=== PATIENT | female | born 1960 | race Caucasian/White ===

== ENCOUNTER 2016-09-24 07:29 | Emergency (ER) | payer MEDICAID, OTHER ==
[~2016-09-24] VITALS: Ht 154.9 cm; Wt 50.0 kg
[2016-09-24 07:34] VITALS: Ht 154.9 cm; Wt 50.0 kg
[2016-09-24 08:39] LABS: URINE BLOOD (Dip) POC 1+ (NEGATIVE)
--- NOTE | 2016-09-24 09:32 | ERD ---
ER Documentation Chief Complaint Date/Time DATE: 09/24/16 TIME: 09:25 Chief Complaint "lower abdominal hernia pain, but i have uterine cancer 20 years ago" HPI This patient is a 56-year-old female with past medical history of uterine cancer post hysterectomy presenting to the emergency department for pelvic pain with prolapse ongoing for the past 3 months. Additionally the patient reports incontinence and uses approximately 3 pads per day. The patient states she had a normal Pap smear approximately 1 year ago. She taken Tylenol for her pain with mild relief of symptoms. She has history of breast and uterine cancer on the maternal side. She denies fevers, chills, hematuria, or other symptoms at this time. ROS All systems reviewed and are negative except as per history of present illness. Allergies Allergies: Coded Allergies: Penicillins (Unverified Allergy, Unknown, 09/24/16) Uncoded Allergies: pcn (Allergy, Unknown, 09/24/16) PMhx/Soc Hx Alcohol Use: No Hx Substance Use: No Hx Tobacco Use: No FmHx Noncontributory for chief complaint Physical Exam Vitals Vital Signs Date Time Temp Pulse Resp B/P Pulse Ox O2 Delivery O2 Flow Rate FiO2 09/24/16 07:34 97.8 100 18 134/86 100 Physical Exam Const: The patient is resting comfortably in no acute distress. Head: Atraumatic Eyes: Normal Conjunctiva ENT: Normal External Ears, Nose and Mouth. Neck: Full range of motion..~ No meningismus. Resp: Clear to auscultation bilaterally Cardio: Regular rate and rhythm, no murmurs Abd: Soft, non tender, non distended. Normal bowel sounds Skin: No petechiae or rashes Back: No midline or flank tenderness Ext: No cyanosis, or edema Neur: Awake and alert Psych: Normal Mood and Affect Pelvic Exam: Director Of Enterprise Strategy present Abdomen: Nontender External Genitalia: Normal skin, when the patient is standing there is pelvic organ prolapse, most likely cystocele. Speculum: Normal vaginal mucosa, the patient is post hysterectomy without a cervix. There is a pink structure noted in the vaginal vault, most likely the bladder. Bimanual: No adnexal masses or tenderness. Results 24 hrs Laboratory Tests Test 09/24/16 08:41 Bedside Urine pH (LAB) 7.0 Bedside Urine Protein (LAB) Negative Bedside Urine Glucose (UA) Negative Bedside Urine Ketones (LAB) Negative Bedside Urine Blood 1+ Bedside Urine Nitrite (LAB) Negative Bedside Urine Leukocyte Esterase (L Negative Procedures/MDM 56-year-old female presents to the emergency department for pelvic pain and vaginal prolapse. On physical examination the patient's vitals are within normal limits. Pelvic exam reveals prolapse of the pelvic organs, most likely the bladder. The patient does not have signs of urinary tract infection. The patient was given information to follow-up closely with an CLIENT RELATIONSHIP MANAGER doctor to determine possible treatment options for cystocele. The patient understands the discharge plan and diagnosis. All questions and concerns were addressed. I have low suspicion for pyelonephritis, hernia, acute abdomen, septicemia, or other emergent conditions. The patient was given strict ER return precautions and she understands. The patient is to have close follow-up with her primary care physician in the next 1-2 days. Departure Diagnosis: Primary Impression: Prolapse of female pelvic organs Prolapse type: unspecified female genital prolapse Qualified Code: N81.9 - Female genital prolapse, unspecified type Condition: Fair Patient Instructions: Pelvic Organ Prolapse: Nonsurgical Treatment, Pelvic Organ Prolapse: Surgery for Cystocele [facility] Usted se maria hecho un examen mdico de control que le indica que no est en gerald condicin que requiera tratamiento urgente en el Departamento de Emergencia. Un estudio ms profundo y el tratamiento de del cid condicin pueden esperar sin ningn riesgo hasta que usted sea atendida/o en el consultorio de del cid mdico o gerald cl robbin. Es responsabilidad suya arreglar gerald rachele para el seguimiento del abimael. MANEJO DE CONDICIONES NO URGENTES EN EL FUTURO 1) Si usted tiene un mdico de atencin primaria: Usted debera llamar a del cid mdico de atencin primaria antes de venir al departamento de emergencia. Despus de las horas de consultorio, del cid doctor o del cid asociado/a est disponible por telfono. El mdico o enfermero de tian en el servicio telefnico puede asesorarle por atul medio para atender el problema, o abimael contrario se puede programar gerald rachele. 2) Si usted no tiene un mdico de atencin primaria: Llame al mdico o clnica de referencia que aparece abajo vita las horas de consultorio para hacer gerald rachele para que le vean. CLINICAS: [facility] [phone] [address] [facility] [phone] [address] [facility] [phone] [address] [facility]. [facility] [phone] [address] [address] [phone] [phone] CLIENT RELATIONSHIP MANAGER [place] [address] [facility] [address] [place], [place] [phone] OFFICE FAX , [facility] [address] [place], [place] [phone] [facility] [address] [place] [address] [address] [facility]IN[address] [facility] [address] [facility], [address], [facility] [address] [address] [facility] [address] [place] [phone] [facility] [address] [place], [place] [phone] [facility] [id number] - GUILLAUME RODRIGUEZ [address], [facility] [phone] LOAIZA, [place] [address], [place] [address] [address] TORIBIO, F[place] [address] [place] [address] Additional Instructions: No mas mejor en 2-3 blanco, regresar. Mas peor en 24 horas, regresear rapidamente. Ir a doctor primario in 5-7 blanco. Necesita ir a gerald specialista en 2 o 3 blanco. Busca informacion de specialistas en linda papeles. Usar instrucciones cuando sharmaine medicamento. SHANE CONWAY PA-C September 24, 2016 09:32
== END 2016-09-24 10:00 | disposition home or self-care (01) ==
LOC: FTE 07:29
DX: N81.9 Female genital prolapse, unspecified (principal); Z85.3 Personal history of malignant neoplasm of breast; Z85.42 Personal history of malignant neoplasm of other parts of uterus
CPT/HCPCS: 81003; 99284

== ENCOUNTER 2016-09-28 11:38 | Emergency (ER) | payer MEDICAID ==
[~2016-09-28] VITALS: Ht 165.1 cm; Wt 49.0 kg
[2016-09-28 11:42] VITALS: Ht 165.1 cm; Wt 49.0 kg
--- NOTE | 2016-09-28 12:02 | ERA ---
ER Documentation Chief Complaint Date/Time DATE: 09/28/16 TIME: 12:00 Chief Complaint painful urination x 1 day; slight pelvic pain; light bloody urine HPI his patient is a 56-year-old female with past medical history of uterine cancer post hysterectomy presenting to the emergency department for pelvic pain with prolapse ongoing for the past 3 months. Patient is now reporting hematuria and back pain. Additionally the patient reports incontinence and uses approximately 3 pads per day. The patient states she had a normal Pap smear approximately 1 year ago. She taken Tylenol for her pain with mild relief of symptoms. She has history of breast and uterine cancer on the maternal side. ROS All systems reviewed and are negative except as per history of present illness. Medications Home Meds Active Scripts Ciprofloxacin Hcl* (Ciprofloxacin Hcl*) 500 Mg Tablet, 500 MG PO BID for 7 Days , TAB Prov:SHAKIRA CROSS PA-C 09/28/16 Phenazopyridine Hcl* (Pyridium*) 100 Mg Tab, 100 MG PO TID Y for URINARY PAIN, # 8 TAB Prov:SHAKIRA CROSS PA-C 09/28/16 Discontinued Scripts Ciprofloxacin Hcl* (Ciprofloxacin Hcl*) 750 Mg Tablet, 750 MG PO BID for 10 Days , #20 TAB Prov:SHAKIRA CROSS PA-C 09/28/16 Allergies Allergies: Coded Allergies: Penicillins (Unverified Allergy, Unknown, 09/28/16) PMhx/Soc Hx Alcohol Use: No Hx Substance Use: No Hx Tobacco Use: No Physical Exam Vitals Vital Signs Date Time Temp Pulse Resp B/P Pulse Ox O2 Delivery O2 Flow Rate FiO2 09/28/16 13:39 98.1 78 18 128/76 98 Room Air 09/28/16 11:42 98.8 90 18 132/80 96 Physical Exam Const: Well-developed 56-year-old female. Head: Atraumatic Eyes: Normal Conjunctiva ENT: Normal External Ears, Nose and Mouth. Neck: Full range of motion..~ No meningismus. Resp: Clear to auscultation bilaterally Cardio: Regular rate and rhythm, no murmurs Abd: Soft, non tender, non distended. Normal bowel sounds Skin: No petechiae or rashes Back: No midline or flank tenderness. No CVA tenderness. Ext: No cyanosis, or edema Neur: Awake and alert Psych: Normal Mood and Affect Results 24 hrs Laboratory Tests Test 09/28/16 12:12 09/28/16 12:36 Bedside Urine pH (LAB) 8.5 Bedside Urine Protein (LAB) 3+ Bedside Urine Glucose (UA) Negative Bedside Urine Ketones (LAB) 1+ Bedside Urine Blood 3+ Bedside Urine Nitrite (LAB) Positive Bedside Urine Leukocyte Esterase (L 3+ Urine Color RED Urine Clarity BLOODY Urine pH 8.5 Urine Specific [place] 1.020 Urine Ketones NEGATIVE Urine Nitrite NEGATIVE Urine Bilirubin NEGATIVE Urine Urobilinogen 0.2 E.U./dL Urine Leukocyte Esterase TRACE Urine Microscopic RBC >200/HPF Urine Microscopic WBC 0-2/HPF Urine Epithelial Cells FEW Urine Bacteria FEW Urine Hemoglobin 2+ Urine Glucose NEGATIVE% Urine Total Protein 2+ Procedures/MDM Patient with a prolapse with symptoms of hematuria. Went ahead and got a urinalysis to rule out infection of the urinary tract. Patient's urinalysis was consistent with a urinary tract infection. There are no white blood cells. Patient's most likely diagnosis is a urinary tract infection. Patient will be given Pyridium for discomfort as well as ciprofloxacin 7 days. He for infection. Patient is allergic to Keflex. Have given the patient discharge instructions with return precautions. Departure Diagnosis: Primary Impression: Genitourinary symptoms Additional Impression: Hemorrhagic cystitis Condition: Stable Additional Instructions: Follow up with your PCP within the next 1-3 days for a more thorough evaluation and a possible referral to a specialist. Return the the emergency department immediately if symptoms worsen or change. If you have any questions regarding medications, ask your pharmacist or us before you leave. If any adverse reactions occur while taking your medications, discontinue the treatment and return to the emergency department immediately. Take your medications as directed, and complete the entire course of treatment. SHAKIRA CROSS PA-C September 28, 2016 12:02
[2016-09-28 12:10] LABS: URINE BLOOD (Dip) POC 3+ (NEGATIVE)
[2016-09-28 13:02] LABS: ADD UMIC YES; URINE BILIRUBIN (Dip) NEGATIVE (NEGATIVE); URINE BLOOD (Dip) 2+ (NEGATIVE); URINE GLUCOSE (Dip) NEGATIVE (NEGATIVE); URINE KETONES (Dip) NEGATIVE (NEGATIVE); URINE LEUKOCYTE ESTERASE (Dip) TRACE (NEGATIVE); URINE NITRITE (Dip) NEGATIVE (NEGATIVE); URINE TOTAL PROTEIN (Dip) 2+ (NEGATIVE); URINE UROBILINOGEN (Dip) 0.2 E.U./dL (0.1-1.0)
[2016-09-28 13:14] LABS: URINE COLOR RED (YELLOW)
[2016-09-28 13:15] LABS: BACTERIA,URINE FEW; URINE RBCS >200 /HPF (0)
[2016-09-28] MEDS ORDERED: CIPR750T3 PO (13:32)
[2016-09-28] MEDS ORDERED: PHEN-537 PO (13:32)
[2016-09-28] MEDS ORDERED: CIPR500T4 PO (13:34)
[2016-09-28 13:39] VITALS: BP 128/76; PULSE 78; RESP 18; TEMP 98.1
== END 2016-09-28 13:40 | disposition home or self-care (01) ==
LOC: FTE 11:38
DX: N30.91 Cystitis, unspecified with hematuria (principal); Z85.41 Personal history of malignant neoplasm of cervix uteri
CPT/HCPCS: 81001; Z7502; 81003; 99283

== ENCOUNTER 2018-04-10 11:30 | Emergency (ER) | END 2018-04-10 14:42 | disposition home or self-care (01) ==